=== PATIENT | male | born 1955 | race African-American/Black ===

== ENCOUNTER 2019-11-01 17:38 | Emergency (ER) | payer OTHER ==
[2019-11-01 17:52] VITALS: BP 141/69; PULSE 99; TEMP 97.9
--- NOTE | 2019-11-01 18:29 | ED ---
General Adult HPI - General Chief complaint: Skin/Abscess/Foreign Body Stated complaint: bump on back Time Seen by Provider: 11/01/19 18:06 Source: patient, RN notes reviewed Mode of arrival: ambulatory Limitations: no limitations - History of Present Illness Initial comments: 64-year-old male without any significant past medical history presents to the emergency department for a chief complaint of "bump on back." Patient states he noticed this this morning. States he has been scratching at it. Denies any injuries. States he thinks it could be an abscess. Denies fevers.Patient has no other complaints at this time including shortness of breath, chest pain, abdominal pain, nausea or vomiting, headache, or visual changes. - Related Data Allergies Allergy/AdvReac Type Severity Reaction Status Date / Time Sulfa (Sulfonamide Allergy Swelling Verified 11/01/19 17:52 Antibiotics) Review of Systems ROS Statement: Those systems with pertinent positive or pertinent negative responses have been documented in the HPI. ROS Other: All systems not noted in ROS Statement are negative. Past Medical History Past Medical History: No Reported History History of Any Multi-Drug Resistant Organisms: None Reported Past Surgical History: Back Surgery Past Psychological History: No Psychological Hx Reported Smoking Status: Never smoker Past Alcohol Use History: Occasional Past Drug Use History: None Reported General Exam Limitations: no limitations General appearance: alert, in no apparent distress Head exam: Present: atraumatic, normocephalic, normal inspection Eye exam: Present: normal appearance, PERRL, EOMI. Absent: scleral icterus, conjunctival injection, periorbital swelling ENT exam: Present: normal exam, mucous membranes moist Neck exam: Present: normal inspection, full ROM. Absent: tenderness, meningismus, lymphadenopathy Respiratory exam: Present: normal lung sounds bilaterally. Absent: respiratory distress, wheezes, rales, rhonchi, stridor Cardiovascular Exam: Present: regular rate, normal rhythm, normal heart sounds. Absent: systolic murmur, diastolic murmur, rubs, gallop, clicks GI/Abdominal exam: Present: soft, normal bowel sounds. Absent: distended, tenderness, guarding, rebound, rigid Back exam: Present: other (pt has excoriation noted to the mid back when he seems to scratch the area. I do not feel any abscess, fluctuance, or induratio n. There is no associated cellulitis or signs of infection.) Course Vital Signs 11/01/19 11/01/19 17:43 18:39 Temperature 97.9 F Pulse Rate 99 Respiratory 18 20 Rate Blood Pressure 141/69 O2 Sat by Pulse 98 Oximetry Medical Decision Making - Medical Decision Making Patient has obvious excoriation to the back. There is no sign of superinfection. No abscess. The area was cleaned and Band-Aid with antibiotic ointment was applied. He will follow up with primary care. He will return for any worsening symptoms. Disposition Clinical Impression: Excoriation of back Disposition: HOME SELF-CARE Condition: Good Instructions (If sedation given, give patient instructions): Acute Rash (ED) Additional Instructions: Please keep area clean. Follow-up with primary care in 1-2 days. Return to the emergency department for any worsening symptoms. Is patient prescribed a controlled substance at d/c from ED?: No Referrals: Alberto Gilmore MD [REFERRING] - 1-2 days Time of Disposition: 18:27
[2019-11-01 18:40] VITALS: RESP 20
== END 2019-11-01 18:44 | disposition home or self-care (01) ==
LOC: EC 17:38
DX: S20.419A Abrasion of unspecified back wall of thorax, initial encounter (principal); Z88.2 Allergy status to sulfonamides; X58.XXXA Exposure to other specified factors, initial encounter
CPT/HCPCS: 99283